=== PATIENT | female | born 1990 | race Caucasian/White ===

== ENCOUNTER 2018-09-22 15:16 | Emergency (ER) | payer OTHER ==
[2018-09-22 15:35] VITALS: O2SAT 100
[2018-09-22] MEDS ORDERED: Sodium Chloride 0.9% 1,000 ML IV STA (15:52)
[2018-09-22 16:00] LABS: SQUAMOUS EPITHIAL 1 /hpf (0-5); URINE AMORPHOUS SEDIMENT OCC /ul (<OCC); URINE BACTERIA OCC (<OCC); URINE BILIRUBIN NEGATIVE (NEGATIVE); URINE BLOOD NEGATIVE (NEGATIVE); URINE CLARITY CLOUDY (Clear); URINE COLOR YELLOW (YELLOW); URINE GLUCOSE (UA) NEG (NEGATIVE); URINE LEUKOCYTE ESTERASE NEG Leu/uL (Negative); URINE PROTEIN 30 mg/dL (NEGATIVE); URINE UROBILINOGEN 0.2-1.0 mg/dL (0.2-1.0)
[2018-09-22 16:08] LABS: BASO # 0.1 K/uL (0.0-0.2); BASO % 0.9 % (0.0-2.0); EOS % 0.4 % (0.0-4.0); HEMOGLOBIN 13.3 g/dL (12.0-16.0); LYMPH # 1.4 K/uL (1.0-4.3); LYMPH % 14.6 % (20.0-40.0); MEAN CELL VOLUME 93.5 fl (81.0-99.0); MEAN CORPUSCULAR HEMOGLOBIN 31.4 pg (27.0-31.0); MEAN CORPUSCULAR HGB CONC 33.6 g/dL (33.0-37.0); MEAN PLATELET VOLUME 10.1 fl (7.2-11.7); MONO # 0.7 K/uL (0.0-0.8); MONO % 6.8 % (0.0-10.0); NEUT # 7.6 K/uL (1.8-7.0); NEUT % 77.3 % (50.0-75.0); RBC 4.23 Mil/uL (3.80-5.20); RED CELL DISTRIBUTION WIDTH 13.1 % (11.5-14.5); WHITE BLOOD COUNT 9.8 K/uL (4.8-10.8)
[2018-09-22 16:19] LABS: ALB/GLOB RATIO 1.4 (1.0-2.1); ALBUMIN 4.8 g/dL (3.5-5.0); ALT/SGPT 16 U/L (9-52); AST/SGOT 21 U/L (14-36); BLOOD UREA NITROGEN 13 mg/dl (7-17); GFR NON-AFRICAN AMERICAN > 60; LIPASE 67 U/L (23-300)
[2018-09-22] MEDS ORDERED: Morphine 4 MG/ML VIAL IVP ONE (16:46)
--- NOTE | 2018-09-22 16:51 | CT ---
Date of service: 09/22/2018 PROCEDURE: CT Abdomen and Pelvis without intravenous contrast HISTORY: Right-sided back pain. R/o kidney stone Negative test (concurrent with this examination). COMPARISON: None. TECHNIQUE: Unenhanced. Neither IV nor oral contrast administered Radiation dose: Total exam DLP = 260.25 mGy-cm. This CT exam was performed using one or more of the following dose reduction techniques: Automated exposure control, adjustment of the mA and/or kV according to patient size, and/or use of iterative reconstruction technique. FINDINGS: LOWER THORAX: Unremarkable. LIVER: Unremarkable. No gross lesion or ductal dilatation. GALLBLADDER AND BILE DUCTS: Unremarkable. PANCREAS: Unremarkable. No gross lesion or ductal dilatation. SPLEEN: Unremarkable. ADRENALS: Unremarkable. No mass. KIDNEYS AND URETERS: Unremarkable. No hydronephrosis. No solid mass. VASCULATURE: Unremarkable. No aortic aneurysm. No atherosclerotic calcification or mural plaque present. BOWEL: Constipation without fecal impaction or obstruction. APPENDIX: A normal appendix is visualized in it's entirety. PERITONEUM: Unremarkable. No free fluid. No free air. LYMPH NODES: Unremarkable. No enlarged lymph nodes. BLADDER: Unremarkable. REPRODUCTIVE: Unremarkable. BONES: No acute fracture. OTHER FINDINGS: None. IMPRESSION: No significant or acute findings to account for/ related to the clinical presentation. Additional benign and/or incidental findings described above.
--- NOTE | 2018-09-22 17:53 | ED PDOC ---
HPI: Back Time Seen by Provider: 09/22/18 15:36 Chief Complaint (Nursing): Back Pain Chief Complaint (Provider): BACK PAIN History Per: Patient (28 Y/O FEMALE HERE WITH RIGHT SIDED BACK PAIN SINCE AM NOTED WHILE WORKING. NOTES GRADUALLY WORSENING PAIN ASSOCIATED WITH URINARY URGENCY BUT NO DYSURIA. PATIENT HAS H/O KIDNEY STONES AND IS CONCERNED THAT IT IS THIS. DENIES ANY FEVRES/CHILLS.) Past Medical History Reviewed: Historical Data, Nursing Documentation, Vital Signs Vital Signs: Last Vital Signs Temp 97.4 F L 09/22/18 15:33 Pulse 66 09/22/18 15:33 Resp 20 09/22/18 15:33 BP 143/86 09/22/18 15:33 Pulse Ox 100 09/22/18 15:33 - Medical History PMH: Kidney Stones - Family History Family History: States: No Known Family Hx - Home Medications Home Medications: Ambulatory Orders Medication Instructions Recorded RX: Naproxen 375 mg PO Q8 PRN #21 tablet 09/22/18 diaZEpam [Valium] 5 mg PO Q6 PRN #5 tab 09/22/18 - Allergies Allergies/Adverse Reactions: Allergies Allergy/AdvReac Type Severity Reaction Status Date / Time No Known Allergies Allergy Verified 09/22/18 15:31 Review of Systems ROS Statement: Except As Marked, All Systems Reviewed And Found Negative Musculoskeletal: Positive for: Back Pain Physical Exam - Reviewed Nursing Documentation Reviewed: Yes Vital Signs Reviewed: Yes - Physical Exam Appears: Positive for: Well, Non-toxic, No Acute Distress Head Exam: Positive for: ATRAUMATIC, NORMAL INSPECTION, NORMOCEPHALIC Skin: Positive for: Normal Color, Warm, DRY Eye Exam: Positive for: EOMI, Normal appearance, PERRL ENT: Positive for: Normal ENT Inspection Neck: Positive for: Normal, Painless ROM Cardiovascular/Chest: Positive for: Regular Rate, Rhythm Respiratory: Positive for: CNT, Normal Breath Sounds Gastrointestinal/Abdominal: Positive for: Normal Exam, Soft Back: Positive for: Normal Inspection, R CVA Tenderness Extremity: Positive for: Normal ROM Neurologic/Psych: Positive for: Alert, Oriented - Laboratory Results Result Diagrams: 09/22/18 16:04 09/22/18 16:04 Lab Results: Total Bilirubin 0.4 mg/dl (0.2-1.3) 09/22/18 16:04 AST 21 U/L (14-36) 09/22/18 16:04 ALT 16 U/L (9-52) 09/22/18 16:04 Alkaline Phosphatase 59 U/L (38-126) 09/22/18 16:04 Total Protein 8.4 G/DL (6.3-8.2) H 09/22/18 16:04 Albumin 4.8 g/dL (3.5-5.0) 09/22/18 16:04 Globulin 3.6 gm/dL (2.2-3.9) 09/22/18 16:04 Albumin/Globulin Ratio 1.4 (1.0-2.1) 09/22/18 16:04 Lipase 67 U/L (23-300) 09/22/18 16:04 Urine Color Yellow (YELLOW) 09/22/18 15:45 Urine Clarity Cloudy (Clear) 09/22/18 15:45 Urine pH 9.0 (5.0-8.0) 09/22/18 15:45 Ur Specific [place] 1.024 (1.003-1.030) 09/22/18 15:45 Urine Protein 30 mg/dL (NEGATIVE) 09/22/18 15:45 Urine Glucose (UA) Neg mg/dL (NEGATIVE) 09/22/18 15:45 Urine Ketones Negative mg/dL (NEGATIVE) 09/22/18 15:45 Urine Blood Negative (NEGATIVE) 09/22/18 15:45 Urine Nitrate Negative (NEGATIVE) 09/22/18 15:45 Urine Bilirubin Negative (NEGATIVE) 09/22/18 15:45 Urine Urobilinogen 0.2-1.0 mg/dL (0.2-1.0) 09/22/18 15:45 Ur Leukocyte Esterase Neg [place]/uL (Negative) 09/22/18 15:45 Urine RBC (Auto) 3 /hpf (0-3) 09/22/18 15:45 Urine Microscopic WBC 3 /hpf (0-5) 09/22/18 15:45 Ur Squamous Epith Cells 1 /hpf (0-5) 09/22/18 15:45 Amorphous Sediment Occ /ul (<OCC) H 09/22/18 15:45 Urine Bacteria Occ (<OCC) H 09/22/18 15:45 Urine POC: Negative - ECG O2 Sat by Pulse Oximetry: 100 - Progress ED Course And Treament: KETOROLAC 15 MG IV X 1 DOSE ZOFRAN 4 MG IV X 1 DOSE MORPHINE 4 MG IV X 1 DOSE ZOFRAN 4MG IV X 1 DOS NS 1 LITER WIDE OPEN FLOMAX 0.4MG X [address] ABD/PELVIS REVIEWED WITH PATIENT. VALIUM 5 MG X 1 DOSE Medical Decision Making Medical Decision Makin:47 CT abd/pelvis FINDINGS: LOWER THORAX: Unremarkable. LIVER: Unremarkable. No gross lesion or ductal dilatation. GALLBLADDER AND BILE DUCTS: Unremarkable. PANCREAS: Unremarkable. No gross lesion or ductal dilatation. SPLEEN: Unremarkable. ADRENALS: Unremarkable. No mass. KIDNEYS AND URETERS: Unremarkable. No hydronephrosis. No solid mass. VASCULATURE: Unremarkable. No aortic aneurysm. No atherosclerotic calcification or mural plaque present. BOWEL: Constipation without fecal impaction or obstruction. APPENDIX: A normal appendix is visualized in it's entirety. PERITONEUM: Unremarkable. No free fluid. No free air. LYMPH NODES: Unremarkable. No enlarged lymph nodes. BLADDER: Unremarkable. REPRODUCTIVE: Unremarkable. BONES: No acute fracture. OTHER FINDINGS: None. IMPRESSION: No significant or acute findings to account for/ related to the clinical presentation. Additional benign and/or incidental findings described above. Disposition - Clinical Impression Clinical Impression: Back pain - Patient ED Disposition Is Patient to be Admitted: No - Disposition Disposition: Routine/Home Disposition Time: 17:54 Condition: STABLE Additional Instructions: CALL [phone] AND ASK FOR SETU ON MONDAY 12-12. Prescriptions: diaZEpam [Valium] 5 mg PO Q6 PRN #5 tab PRN Reason: Muscle Spasm RX: Naproxen 375 mg PO Q8 PRN #21 tablet PRN Reason: Pain, Moderate (4-7) Instructions: Low Back Pain in Adults Forms: [facility] ED School/Work Excuse
[2018-09-22 19:37] VITALS: BP 113/70; PULSE 60; RESP 18; TEMP 97.9
== END 2018-09-22 19:46 | disposition home or self-care (01) ==
LOC: H.ER 15:16
DX: M54.5 Low back pain (principal); Z87.442 Personal history of urinary calculi
CPT/HCPCS: 74176; 80053; 81003; 81025; 83690; 85025; 87086; 96361; 96374; 96375; 96376; 99283; J1885; J2270; J2405; J7030